=== PATIENT | female | born 1955 | race Caucasian/White ===

== ENCOUNTER 2023-10-27 00:10 | Inpatient (IN) | payer MEDICARE, OTHER ==
[~2023-10-27] VITALS: Ht 172.7 cm; Wt 93.4 kg
[2023-10-27 01:23] LABS: BASOPHILS # (AUTO) 0.1 K/UL (0.0-0.2); BASOPHILS % (AUTO) 0.4 % (0.0-2.0); EOSINOPHILS # (AUTO) 0.4 K/uL (0.0-0.7); EOSINOPHILS % (AUTO) 3.2 % (0.0-7.0); HEMATOCRIT 33.9 % (31.2-41.9); HEMOGLOBIN 11.2 g/dL (10.9-14.3); LYMPHOCYTES # (AUTO) 4.2 K/uL (0.8-4.8); LYMPHOCYTES % (AUTO) 35.1 % (20.5-51.5); MEAN CORPUSCULAR HEMOGLOBIN 29.6 uug (24.7-32.8); MEAN CORPUSCULAR HGB CONC 33 g/dL (32.3-35.6); MEAN CORPUSCULAR VOLUME 89.3 fL (75.5-95.3); MONOCYTES # (AUTO) 0.9 K/uL (0.1-1.30); NEUTROPHILS # (AUTO) 6.6 K/uL (1.8-8.9); NEUTROPHILS % (AUTO) 54.3 % (38.5-71.5); PLATELET COUNT (AUTO) 182 K/uL (179-408); RED CELL DISTRIBUTION WIDTH 13.6 % (12.3-17.7); WHITE BLOOD COUNT (AUTO) 12.1 K/uL (3.8-11.8)
[2023-10-27 01:40] LABS: DIFFERENTIAL COMMENT 1
[2023-10-27 01:53] LABS: ALBUMIN 3.1 g/dL (3.4-5.0); BILIRUBIN,TOTAL 0.4 mg/dL (0.2-1.0); CREATININE 1.1 mg/dL (0.6-1.3); MAGNESIUM 2.2 mg/dL (1.8-2.4); POTASSIUM 4.2 mmol/L (3.5-5.1); TOTAL PROTEIN, SERUM 6.6 g/dL (6.4-8.2)
[2023-10-27 01:58] LABS: THYROID STIMULATING HORMONE 3.122 mIU/mL (0.358-3.740)
[2023-10-27 02:48] LABS: *BILIRUBIN,URIN NEGATIVE (NEGATIVE); *BLOOD, URINE 2+ (NEGATIVE); *COLOR,URINE YELLOW (YELLOW); *KETONES,URINE NEGATIVE (NEGATIVE); *UROBILINOGEN,URINE 0.2 E.U./dl (NORMAL); LEUKOCYTE ESTERASE ,URINE 3+ (NEGATIVE); NITRITE, URINE NEGATIVE (NEGATIVE); PH,URINE 7.5 (5.0-8.0); UGLUCOSE NEGATIVE (NEGATIVE)
[2023-10-27 03:04] LABS: *CLARITY,URINE CLOUDY (CLEAR); *PROTEIN,URINE 3+ (NEGATIVE)
[2023-10-27] MEDS ORDERED: CEFTRIAXONE 1 G VIAL IM ONE (03:15)
[2023-10-27] MEDS ORDERED: CEFTRIAXONE 1 G VIAL ONE (03:16)
[2023-10-27 03:52] LABS: RBC,URINE 20-50 /HPF (0-3)
[2023-10-27 03:53] LABS: BACTERIA,URINE MANY /HPF (NONE SEEN); SQUAMOUS EPITHELIAL CELL,UR FEW /HPF (NONE SEEN); TRIPLE PHOSPHATE CRYSTAL,UR MANY /HPF (NONE SEEN); WBC,URINE TNTC /HPF (0-3)
[2023-10-27] MEDS ORDERED: CEPH500C2 PO (05:28)
[2023-10-27] MEDS ORDERED: REMEDY ESSENTIAL ZINC PASTE 113 GM TP PRN (09:15)
[2023-10-27] MEDS ORDERED: MORPHINE SULFATE 2 MG/1 ML DISP.SYRIN IV PRN (09:15)
[2023-10-27] MEDS ORDERED: ACETAMINOPHEN 325 MG TABLET PO PRN (09:15)
[2023-10-27] MEDS ORDERED: ONDANSETRON 4 MG/2 ML VIAL IV PRN (09:15)
[2023-10-27] MEDS ORDERED: CEFTRIAXONE 1 G in IV DEXTROSE 5% 50 ML IV SCH (09:15)
[2023-10-27] MEDS ORDERED: HYDROCODONE/APAP 5-325MG TABLET PO PRN (09:15)
[2023-10-27] MEDS ORDERED: MAGNESIUM HYDROXIDE 30 ML LIQUID UDC PO PRN (09:15)
[2023-10-27] MEDS: ENOXAPARIN SODIUM 40 MG/0.4 ML DISP.SYRIN SQ SCH (10:05)
[2023-10-27] MEDS ORDERED: CEFTRIAXONE /D5W 50ML IVPB **ER PYXIS IV ONE (10:10)
[2023-10-27 22:20] VITALS: BP 145/64; TEMP 98; O2SAT 97
[2023-10-27] MEDS: IV D5 1/2 NS 1000 ML 1,000 ML IV PRN (22:25)
[2023-10-28] VITALS: BP 126/62; TEMP 97.9; O2SAT 96
[2023-10-28 04:00] VITALS: BP 130/58; TEMP 97.4; O2SAT 96
[2023-10-28 06:00] LABS: BASOPHILS % (AUTO) 0.5 % (0.0-2.0); EOSINOPHILS # (AUTO) 0.3 K/uL (0.0-0.7); EOSINOPHILS % (AUTO) 3.6 % (0.0-7.0); HEMATOCRIT 34.2 % (31.2-41.9); HEMOGLOBIN 11.5 g/dL (10.9-14.3); LYMPHOCYTES % (AUTO) 35.8 % (20.5-51.5); MEAN CORPUSCULAR HEMOGLOBIN 29.8 uug (24.7-32.8); MEAN CORPUSCULAR HGB CONC 34 g/dL (32.3-35.6); MEAN CORPUSCULAR VOLUME 88.5 fL (75.5-95.3); MONOCYTES # (AUTO) 0.5 K/uL (0.1-1.30); MONOCYTES % (AUTO) 6.6 % (0.0-11.0); NEUTROPHILS # (AUTO) 4.4 K/uL (1.8-8.9); NEUTROPHILS % (AUTO) 53.5 % (38.5-71.5); PLATELET COUNT (AUTO) 155 K/uL (179-408); RED BLOOD CELL COUNT(AUTO) 3.86 MIL/uL (3.63-4.92); RED CELL DISTRIBUTION WIDTH 13.2 % (12.3-17.7); WHITE BLOOD COUNT (AUTO) 8.3 K/uL (3.8-11.8)
[2023-10-28 06:09] LABS: DIFFERENTIAL COMMENT 1
[2023-10-28 06:21] LABS: CALCIUM 8.7 mg/dL (8.5-10.1); MAGNESIUM 1.9 mg/dL (1.8-2.4); PHOSPHOROUS 3.9 mg/dL (2.5-4.9); POTASSIUM 3.7 mmol/L (3.5-5.1)
[2023-10-28 06:26] LABS: THYROID STIMULATING HORMONE 2.222 mIU/mL (0.358-3.740)
[2023-10-28 08:00] VITALS: BP 103/53; TEMP 97.4; O2SAT 96
[2023-10-28] MEDS: CEFTRIAXONE 1 G in IV DEXTROSE 5% 50 ML IV SCH (09:10)
[2023-10-28] MEDS: ENOXAPARIN SODIUM 40 MG/0.4 ML DISP.SYRIN SQ SCH (09:11)
[2023-10-28 14:45] VITALS: BP 122/53; TEMP 97.8; O2SAT 96
[2023-10-28] MEDS: IV D5 1/2 NS 1000 ML 1,000 ML IV PRN (17:23)
[2023-10-28 20:00] VITALS: BP 119/61; TEMP 98; O2SAT 97
[2023-10-29] VITALS (7 sets, daily range): BP systolic 93–115; BP diastolic 40–61; TEMP 97.7–98.4; O2SAT 91–99
[2023-10-29 06:57] LABS: BASOPHILS % (AUTO) 0.6 % (0.0-2.0); EOSINOPHILS # (AUTO) 0.3 K/uL (0.0-0.7); EOSINOPHILS % (AUTO) 4.5 % (0.0-7.0); HEMATOCRIT 32.9 % (31.2-41.9); HEMOGLOBIN 11.1 g/dL (10.9-14.3); LYMPHOCYTES # (AUTO) 2.8 K/uL (0.8-4.8); LYMPHOCYTES % (AUTO) 37.5 % (20.5-51.5); MEAN CORPUSCULAR HEMOGLOBIN 29.8 uug (24.7-32.8); MEAN CORPUSCULAR HGB CONC 34 g/dL (32.3-35.6); MEAN CORPUSCULAR VOLUME 88.5 fL (75.5-95.3); MONOCYTES # (AUTO) 0.5 K/uL (0.1-1.30); MONOCYTES % (AUTO) 6.2 % (0.0-11.0); NEUTROPHILS # (AUTO) 3.8 K/uL (1.8-8.9); NEUTROPHILS % (AUTO) 51.2 % (38.5-71.5); PLATELET COUNT (AUTO) 155 K/uL (179-408); RED BLOOD CELL COUNT(AUTO) 3.71 MIL/uL (3.63-4.92); RED CELL DISTRIBUTION WIDTH 13.1 % (12.3-17.7); WHITE BLOOD COUNT (AUTO) 7.3 K/uL (3.8-11.8)
[2023-10-29 07:10] LABS: DIFFERENTIAL COMMENT 1
[2023-10-29 07:41] LABS: CALCIUM 8.9 mg/dL (8.5-10.1); CREATININE 0.9 mg/dL (0.6-1.3); POTASSIUM 3.7 mmol/L (3.5-5.1)
[2023-10-29] MEDS: CEFTRIAXONE 1 G in IV DEXTROSE 5% 50 ML IV SCH (08:28)
[2023-10-29] MEDS: ENOXAPARIN SODIUM 40 MG/0.4 ML DISP.SYRIN SQ SCH (08:45)
[2023-10-29] MEDS ORDERED: ACET325T53 PO (12:16)
[2023-10-29] MEDS ORDERED: ACET-2030 PO (12:17)
[2023-10-29] MEDS ORDERED: BACL10TA PO (12:18)
[2023-10-29] MEDS ORDERED: DILT-2 PO (12:20)
[2023-10-29] MEDS ORDERED: BISA10SU61 RC (12:21)
[2023-10-29] MEDS ORDERED: ERGO500040 PO (12:23)
[2023-10-29] MEDS ORDERED: FERR-56 PO (12:24)
[2023-10-29] MEDS ORDERED: OMEG-49 PO (12:25)
[2023-10-29] MEDS ORDERED: NA P133E RC (12:27)
[2023-10-29] MEDS ORDERED: LOSA100T31 PO (13:13)
[2023-10-29] MEDS ORDERED: IBUP-1490 PO (13:13)
[2023-10-29] MEDS ORDERED: METF-440 PO (13:16)
[2023-10-29] MEDS ORDERED: METO-358 PO (13:18)
[2023-10-29] MEDS ORDERED: MAGN400O6 PO (13:19)
[2023-10-29] MEDS ORDERED: MULT-213 PO (13:20)
[2023-10-29] MEDS ORDERED: RIVA20TA PO (13:21)
[2023-10-29] MEDS ORDERED: ROSU40TA PO (13:22)
[2023-10-29] MEDS ORDERED: SERT25TA PO (13:24)
[2023-10-29] MEDS: IV D5 1/2 NS 1000 ML 1,000 ML IV PRN (13:31)
[2023-10-29] MEDS ORDERED: NIAC-49 PO (13:32)
[2023-10-29] MEDS ORDERED: GLUC1KIT IM (13:35)
[2023-10-29] MEDS ORDERED: DEXT38GE12 PO (13:36)
[2023-10-29] MEDS ORDERED: HOME MED MISCELLANEOUS XX SCH ×2 (15:15)
[2023-10-29] MEDS ORDERED: BISACODYL 10 MG SUPP.RECT RC PRN (15:15)
[2023-10-29] MEDS ORDERED: FLEET ENEMA 133 ML BOTTLE RC PRN (15:15)
[2023-10-29] MEDS ORDERED: BACLOFEN 10 MG TABLET PO PRN (15:15)
[2023-10-29] MEDS ORDERED: ERGOCALCIFEROL 50,000 UNIT CAPSULE PO SCH (15:15)
[2023-10-29] MEDS ORDERED: MAGNESIUM HYDROXIDE 30 ML LIQUID UDC PO PRN ×2 (15:15→16:00)
[2023-10-29] MEDS ORDERED: RIVAROXABAN 10 MG TABLET PO SCH (18:00)
[2023-10-29] MEDS: ATORVASTATIN 40 MG TABLET PO SCH (20:25)
[2023-10-30 00:27] VITALS: BP 126/67; TEMP 98.6; O2SAT 95
[2023-10-30 04:28] VITALS: BP 116/84; TEMP 97.6; O2SAT 95
[2023-10-30 06:20] LABS: BASOPHILS % (AUTO) 0.4 % (0.0-2.0); EOSINOPHILS # (AUTO) 0.4 K/uL (0.0-0.7); EOSINOPHILS % (AUTO) 4.7 % (0.0-7.0); HEMATOCRIT 33.3 % (31.2-41.9); HEMOGLOBIN 11.2 g/dL (10.9-14.3); LYMPHOCYTES # (AUTO) 2.9 K/uL (0.8-4.8); LYMPHOCYTES % (AUTO) 38.1 % (20.5-51.5); MEAN CORPUSCULAR HEMOGLOBIN 29.8 uug (24.7-32.8); MEAN CORPUSCULAR HGB CONC 34 g/dL (32.3-35.6); MEAN CORPUSCULAR VOLUME 88.6 fL (75.5-95.3); MONOCYTES # (AUTO) 0.5 K/uL (0.1-1.30); MONOCYTES % (AUTO) 6.4 % (0.0-11.0); NEUTROPHILS # (AUTO) 3.8 K/uL (1.8-8.9); NEUTROPHILS % (AUTO) 50.4 % (38.5-71.5); PLATELET COUNT (AUTO) 155 K/uL (179-408); RED BLOOD CELL COUNT(AUTO) 3.76 MIL/uL (3.63-4.92); RED CELL DISTRIBUTION WIDTH 13.4 % (12.3-17.7); WHITE BLOOD COUNT (AUTO) 7.6 K/uL (3.8-11.8)
[2023-10-30 06:41] LABS: DIFFERENTIAL COMMENT 1
[2023-10-30 06:43] LABS: CALCIUM 8.8 mg/dL (8.5-10.1); CREATININE 0.9 mg/dL (0.6-1.3); POTASSIUM 3.6 mmol/L (3.5-5.1)
[2023-10-30] MEDS ORDERED: ACETAMINOPHEN 325 MG TABLET PO ONE (09:30)
[2023-10-30] MEDS ORDERED: GABAPENTIN 100 MG CAPSULE PO ONE (09:30)
[2023-10-30] MEDS ORDERED: ACETAMINOPHEN ES 500 MG TABLET PO ONE (09:45)
[2023-10-30] MEDS: CEFTRIAXONE 1 G in IV DEXTROSE 5% 50 ML IV SCH (09:52)
[2023-10-30] MEDS ORDERED: VANCOMYCIN 1000 MG VIAL ONE (09:52)
[2023-10-30] MEDS: IV D5 1/2 NS 1000 ML 1,000 ML IV PRN (09:53)
[2023-10-30] MEDS: DILTIAZEM HCL CD 120 MG CAP.SR.24H PO SCH (09:54)
[2023-10-30] MEDS: MULTIVITAMINS,THERAPEUTIC TABLET PO SCH (09:55)
[2023-10-30] MEDS: LOSARTAN POTASSIUM 50 MG TABLET PO SCH (09:55)
[2023-10-30] MEDS: FERROUS SULFATE 325 MG TABEC PO SCH (09:55)
[2023-10-30] MEDS: METOPROLOL SUCCINATE XL 50 MG TAB.SR.24H PO SCH (09:55)
[2023-10-30] MEDS: SERTRALINE HCL 50 MG TABLET PO SCH (09:56)
[2023-10-30] MEDS ORDERED: MIDAZOLAM HCL 2 MG/2 ML VIAL ONE (11:28)
[2023-10-30] MEDS ORDERED: ROCURONIUM BROMIDE 50 MG/5 ML VIAL ONE ×2 (11:28→11:29)
[2023-10-30] MEDS ORDERED: FENTANYL CITRATE 100 MCG/2 ML AMPUL ONE (11:35)
[2023-10-30] MEDS ORDERED: MORPHINE SULFATE 4 MG/1 ML DISP.SYRIN IV PRN (13:45)
[2023-10-30] MEDS ORDERED: HYDROCODONE/APAP 10-325 MG TABLET PO PRN (13:45)
[2023-10-30 15:04] VITALS: BP 123/66; TEMP 97.4; O2SAT 97
[2023-10-30] MEDS: IV D5W-0.45% NS +20 KCL 1,000 ML IV PRN (15:22)
[2023-10-30] MEDS: ATORVASTATIN 40 MG TABLET PO SCH (20:08)
[2023-10-30 20:42] VITALS: BP 124/61; TEMP 97.9; O2SAT 95
[2023-10-31 00:20] VITALS: BP 106/47; TEMP 97.9; O2SAT 94
[2023-10-31 04:07] VITALS: BP 108/85; TEMP 97.3; O2SAT 95
[2023-10-31] MEDS: IV D5W-0.45% NS +20 KCL 1,000 ML IV PRN ×2 (04:09→22:20)
[2023-10-31 07:28] LABS: HEMATOCRIT 30.7 % (31.2-41.9); HEMOGLOBIN 10.1 g/dL (10.9-14.3); LYMPHOCYTES # (AUTO) 1.2 K/uL (0.8-4.8); LYMPHOCYTES % (AUTO) 8.6 % (20.5-51.5); MEAN CORPUSCULAR HEMOGLOBIN 29.3 uug (24.7-32.8); MEAN CORPUSCULAR HGB CONC 33 g/dL (32.3-35.6); MEAN CORPUSCULAR VOLUME 89.1 fL (75.5-95.3); MONOCYTES # (AUTO) 0.7 K/uL (0.1-1.30); MONOCYTES % (AUTO) 4.7 % (0.0-11.0); NEUTROPHILS # (AUTO) 12.5 K/uL (1.8-8.9); NEUTROPHILS % (AUTO) 86.7 % (38.5-71.5); PLATELET COUNT (AUTO) 204 K/uL (179-408); RED BLOOD CELL COUNT(AUTO) 3.44 MIL/uL (3.63-4.92); RED CELL DISTRIBUTION WIDTH 13.3 % (12.3-17.7); WHITE BLOOD COUNT (AUTO) 14.4 K/uL (3.8-11.8)
[2023-10-31 07:39] LABS: CALCIUM 8.9 mg/dL (8.5-10.1); POTASSIUM 4.3 mmol/L (3.5-5.1)
[2023-10-31 07:51] LABS: DIFFERENTIAL COMMENT 1
[2023-10-31 08:00] VITALS: BP 92/51; TEMP 98.2; O2SAT 99
[2023-10-31] MEDS: CEFTRIAXONE 1 G in IV DEXTROSE 5% 50 ML IV SCH (08:38)
[2023-10-31] MEDS: LOSARTAN POTASSIUM 50 MG TABLET PO SCH (08:39)
[2023-10-31] MEDS: DILTIAZEM HCL CD 120 MG CAP.SR.24H PO SCH (08:40)
[2023-10-31] MEDS: FERROUS SULFATE 325 MG TABEC PO SCH (08:40)
[2023-10-31] MEDS: METOPROLOL SUCCINATE XL 50 MG TAB.SR.24H PO SCH (08:41)
[2023-10-31] MEDS: SERTRALINE HCL 50 MG TABLET PO SCH (08:41)
[2023-10-31] MEDS: MULTIVITAMINS,THERAPEUTIC TABLET PO SCH (08:41)
[2023-10-31] MEDS: ENOXAPARIN SODIUM 40 MG/0.4 ML DISP.SYRIN SQ SCH (08:42)
[2023-10-31 11:06] VITALS: BP 106/65; TEMP 98.3; O2SAT 96
[2023-10-31 16:03] VITALS: BP 124/56; TEMP 97.6; O2SAT 98
[2023-10-31 20:11] VITALS: BP 106/57; TEMP 97.5; O2SAT 97
[2023-10-31] MEDS: ATORVASTATIN 40 MG TABLET PO SCH (20:52)
[2023-11-01] VITALS: BP 140/68; TEMP 97.5; O2SAT 96
[2023-11-01 05:32] VITALS: BP 114/59; TEMP 97.7; O2SAT 95
[2023-11-01 07:07] LABS: BASOPHILS % (AUTO) 0.2 % (0.0-2.0); EOSINOPHILS # (AUTO) 0.1 K/uL (0.0-0.7); EOSINOPHILS % (AUTO) 0.5 % (0.0-7.0); HEMATOCRIT 26.9 % (31.2-41.9); HEMOGLOBIN 9.1 g/dL (10.9-14.3); LYMPHOCYTES # (AUTO) 2.7 K/uL (0.8-4.8); LYMPHOCYTES % (AUTO) 27.5 % (20.5-51.5); MEAN CORPUSCULAR HEMOGLOBIN 30.3 uug (24.7-32.8); MEAN CORPUSCULAR HGB CONC 34 g/dL (32.3-35.6); MEAN CORPUSCULAR VOLUME 89.9 fL (75.5-95.3); MONOCYTES # (AUTO) 0.8 K/uL (0.1-1.30); MONOCYTES % (AUTO) 8.3 % (0.0-11.0); NEUTROPHILS # (AUTO) 6.2 K/uL (1.8-8.9); NEUTROPHILS % (AUTO) 63.5 % (38.5-71.5); PLATELET COUNT (AUTO) 138 K/uL (179-408); RED BLOOD CELL COUNT(AUTO) 2.99 MIL/uL (3.63-4.92); WHITE BLOOD COUNT (AUTO) 9.7 K/uL (3.8-11.8)
[2023-11-01 07:11] LABS: CALCIUM 8.6 mg/dL (8.5-10.1); CREATININE 0.7 mg/dL (0.6-1.3); MAGNESIUM 2.4 mg/dL (1.8-2.4); PHOSPHOROUS 2.9 mg/dL (2.5-4.9); POTASSIUM 3.9 mmol/L (3.5-5.1)
[2023-11-01 07:13] LABS: DIFFERENTIAL COMMENT 1
[2023-11-01 08:00] VITALS: BP 116/55; TEMP 97.4; O2SAT 100
[2023-11-01] MEDS: DILTIAZEM HCL CD 120 MG CAP.SR.24H PO SCH (08:34)
[2023-11-01] MEDS: MULTIVITAMINS,THERAPEUTIC TABLET PO SCH (08:34)
[2023-11-01] MEDS: METOPROLOL SUCCINATE XL 50 MG TAB.SR.24H PO SCH (08:34)
[2023-11-01] MEDS: SERTRALINE HCL 50 MG TABLET PO SCH (08:35)
[2023-11-01] MEDS: CEFTRIAXONE 1 G in IV DEXTROSE 5% 50 ML IV SCH (08:35)
[2023-11-01] MEDS: FERROUS SULFATE 325 MG TABEC PO SCH (08:35)
[2023-11-01] MEDS: ENOXAPARIN SODIUM 40 MG/0.4 ML DISP.SYRIN SQ SCH (08:36)
[2023-11-01 08:46] LABS: CALCIUM 8.5 mg/dL (8.5-10.1); CREATININE 0.7 mg/dL (0.6-1.3); POTASSIUM 4.1 mmol/L (3.5-5.1)
[2023-11-01 11:38] VITALS: BP 102/47; TEMP 98.2; O2SAT 100
[2023-11-01] MEDS ORDERED: NITR100C11 PO (13:08)
[2023-11-01] MEDS ORDERED: ENOX40DI SQ (13:08)
[2023-11-01] MEDS: IV D5W-0.45% NS +20 KCL 1,000 ML IV PRN (14:26)
[2023-11-01 16:12] VITALS: BP 112/55; TEMP 98.2; O2SAT 100
[2023-11-04] MEDS ORDERED: ERGOCALCIFEROL 50,000 UNIT CAPSULE PO SCH (17:00)
== END 2023-11-01 21:29 | DRG 493 ==
LOC: ER 00:30 → TELE3 21:46
PROVIDERS: ADMIT Nurse Practitioner Acute Care; ATTEND Nurse Practitioner Acute Care
PROC: 0PSG04Z Reposition Left Humeral Shaft with Internal Fixation Device, Open Approach (ICD-10-PCS; principal; 2023-10-30)
DX: S42.222A 2-part displaced fracture of surgical neck of left humerus, initial encounter for closed fracture (principal); D68.59 Other primary thrombophilia; E44.0 Moderate protein-calorie malnutrition; N39.0 Urinary tract infection, site not specified; Z68.31 Body mass index [BMI] 31.0-31.9, adult; W18.30XA Fall on same level, unspecified, initial encounter; Y92.129 Unspecified place in nursing home as the place of occurrence of the external cause; B96.20 Unspecified Escherichia coli [E. coli] as the cause of diseases classified elsewhere; R00.1 Bradycardia, unspecified; M06.9 Rheumatoid arthritis, unspecified; E88.09 Other disorders of plasma-protein metabolism, not elsewhere classified; E66.9 Obesity, unspecified; Z74.09 Other reduced mobility; Z20.822 Contact with and (suspected) exposure to COVID-19; R79.89 Other specified abnormal findings of blood chemistry; Z79.01 Long term (current) use of anticoagulants; Z79.899 Other long term (current) drug therapy; E11.9 Type 2 diabetes mellitus without complications; Z79.84 Long term (current) use of oral hypoglycemic drugs; R53.1 Weakness
CPT/HCPCS: 36415; 71045; 73020; 73060; 83735; 84100; 84443; 84484; 85025; 85730; 93307; A4606; A4649; A4663; A9150; C1713; C1758; G0378; J0696; J1650; J2250; J3010; J3370; J3490

== ENCOUNTER 2025-10-13 19:15 | Inpatient (IN) | payer MEDICARE, OTHER ==
[~2025-10-13] VITALS: Ht 172.7 cm; Wt 97.5 kg
[~2025-10-13 19:15] MED LIST: ACET-3752 PO; BACL10TA PO; BISA10SU61 RC; DEXT38GE12 PO; DILT-2 PO; ENOX40DI SQ; ERGO125010 PO; FERR-56 PO; GLUC1VIA21 IM; MAGN400O6 PO; METF-440 PO; METO-358 PO; MULT-213 PO; NA P133E RC; NIAC-49 PO; NITR100C11 PO; OMEG-49 PO; ROSU40TA PO; SERT25TA PO
[2025-10-13] MEDS: IV NORMAL SALINE 1000 ML BAG IV ONE (19:30)
[2025-10-13] MEDS: PIPERACILLIN SODIUM/TAZOBACTAM 3.375 G in IV DEXTROSE 5% 50 ML IV ONE (19:30)
[2025-10-13] MEDS ORDERED: LIDO30AD10 TP (19:41)
[2025-10-13] MEDS ORDERED: BISA10SU61 RC (19:41)
[2025-10-13] MEDS ORDERED: ROSU10TA2 PO (19:41)
[2025-10-13] MEDS ORDERED: CALC600T35 PO (19:41)
[2025-10-13] MEDS ORDERED: NIAC500T25 PO (19:41)
[2025-10-13] MEDS ORDERED: FENO48TA PO (19:41)
[2025-10-13] MEDS ORDERED: POLY17PO4 PO (19:41)
[2025-10-13] MEDS ORDERED: IPRA0.2S48 NEB (19:41)
[2025-10-13] MEDS ORDERED: CHOL100045 PO (19:41)
[2025-10-13 19:55] LABS: CREATININE 4.3 mg/dL (0.6-1.3); SODIUM SERUM 138 mmol/L (136-145); UREA NITROGEN, BLOOD 58 mg/dL (7-18)
[2025-10-13 19:56] LABS: PLATELET COUNT (AUTO) 236 K/uL (179-408); RED BLOOD CELL COUNT(AUTO) 3.39 MIL/uL (3.63-4.92); RED CELL DISTRIBUTION WIDTH 18.0 % (12.3-17.7)
[2025-10-13 19:58] LABS: WHITE BLOOD COUNT (AUTO) 41.8 K/uL (3.8-11.8)
[2025-10-13 20:01] LABS: ASPARTATE AMINOTRANSFERASE 227 U/L (15-37); TOTAL PROTEIN, SERUM 7.2 g/dL (6.4-8.2)
[2025-10-13] MEDS ORDERED: PIPERACILLIN/TAZOBACTAM/D5W 50 ML IV ONE (20:04)
[2025-10-13 20:05] LABS: LACTIC ACID 2.5 mmol/L (0.4-2.0)
[2025-10-13 20:36] LABS: BAND % (MANUAL) 19 % (0-10); EOSINOPHILS % (MANUAL) 2 % (0-8); LYMPHOCYTES % (MANUAL) 4 % (20-40); MONOCYTES % (MANUAL) 2 % (2-10); NEUTROPHILS % (MANUAL) 73 % (42-75); PLATELET ESTIMATE ADEQUATE
[2025-10-13] MEDS ORDERED: IV NS 1000 ML 2,000 ML IV ONE (20:45)
[2025-10-13] MEDS: IV NORMAL SALINE 500 ML IV ONE (20:51)
[2025-10-13] MEDS ORDERED: VANCOMYCIN 1000 MG VIAL ONE (21:00)
[2025-10-13 21:07] LABS: *BILIRUBIN,URIN 1+ (NEGATIVE); *BLOOD, URINE 2+ (NEGATIVE); *COLOR,URINE YELLOW (YELLOW); *KETONES,URINE TRACE (NEGATIVE); *PROTEIN,URINE 2+ (NEGATIVE); *UROBILINOGEN,URINE 1.0 E.U./dl (NORMAL); LEUKOCYTE ESTERASE ,URINE 3+ (NEGATIVE); NITRITE, URINE NEGATIVE (NEGATIVE); UGLUCOSE NEGATIVE (NEGATIVE)
[2025-10-13 21:13] LABS: *CLARITY,URINE CLOUDY (CLEAR)
[2025-10-13 21:19] LABS: SQUAMOUS EPITHELIAL CELL,UR MANY /HPF (NONE SEEN); URINE AMORPHOUS URATE MANY /HPF
[2025-10-13] MEDS ORDERED: ONDANSETRON 4 MG/2 ML VIAL IV PRN (22:30)
[2025-10-13] MEDS ORDERED: MAGNESIUM HYDROXIDE 30 ML LIQUID UDC PO PRN (22:30)
[2025-10-13] MEDS ORDERED: ACETAMINOPHEN 325 MG TABLET-SA PATIENTS-PAIN ONLY PO PRN (22:45)
[2025-10-13] MEDS ORDERED: MIRALAX 17 GM POWD.PACK PO PRN (22:45)
[2025-10-13] MEDS ORDERED: FLEET ENEMA 133 ML BOTTLE RC PRN (22:45)
[2025-10-13] MEDS ORDERED: BISACODYL 10 MG SUPP.RECT RC PRN (22:45)
[2025-10-13] MEDS ORDERED: INSULIN REGULAR, HUMAN 300 UNITS/3 ML VIAL SQ PRN (22:45)
[2025-10-13] MEDS ORDERED: DEXTROSE 50% 50 ML DISP.SYRIN IV PRN (22:45)
[2025-10-13 23:00] VITALS: BP 102/52
[2025-10-14] VITALS (12 sets, daily range): BP systolic 95–103; BP diastolic 45–62; TEMP 97.2–97.9; O2SAT 97–100
[2025-10-14] MEDS: IV NS 1000 ML 1,000 ML IV PRN (00:39)
[2025-10-14] MEDS: PANTOPRAZOLE SODIUM 40 MG TABLET.DR PO SCH (06:08)
[2025-10-14] MEDS: BLOOD SUGAR DIAGNOSTIC 1 EACH STRIP VI SCH (06:44)
[2025-10-14] MEDS: IPRATROPIUM BROMIDE 0.5 MG/2.5 ML NEBU NEB SCH (07:30)
[2025-10-14] MEDS ORDERED: ENOXAPARIN SODIUM 30 MG/0.3 ML DISP.SYRIN SQ SCH ×2 (09:00)
[2025-10-14] MEDS: DILTIAZEM HCL CD 120 MG CAP.SR.24H PO SCH (09:00)
[2025-10-14] MEDS ORDERED: NIACIN 500 MG TABLET.SA PO SCH ×2 (09:00)
[2025-10-14] MEDS ORDERED: FENOFIBRATE NANOCRYSTALLIZED 48 MG TABLET PO SCH (09:00)
[2025-10-14] MEDS: METOPROLOL SUCCINATE XL 50 MG TAB.SR.24H PO SCH (09:00)
[2025-10-14 09:07] LABS: ASPARTATE AMINOTRANSFERASE 199.0 U/L (15-37); CREATININE 4.0 mg/dL (0.6-1.3); SODIUM SERUM 137.0 mmol/L (136-145); TOTAL PROTEIN, SERUM 6.9 g/dL (6.4-8.2); UREA NITROGEN, BLOOD 64.0 mg/dL (7-18)
[2025-10-14 09:10] LABS: PLATELET COUNT (AUTO) 206 K/uL (179-408); RED BLOOD CELL COUNT(AUTO) 3.30 MIL/uL (3.63-4.92); RED CELL DISTRIBUTION WIDTH 17.7 % (12.3-17.7)
[2025-10-14 09:16] LABS: WHITE BLOOD COUNT (AUTO) 31.3 K/uL (3.8-11.8)
[2025-10-14] MEDS: OMEGA-3 FATTY ACIDS/FISH OIL CAPSULE PO SCH (09:36)
[2025-10-14] MEDS: PIPERACILLIN SODIUM/TAZOBACTAM 3.375 G in IV DEXTROSE 5% 100 ML IV SCH (09:36)
[2025-10-14] MEDS: CALCIUM CARBONATE 600 MG TABLET PO SCH (09:37)
[2025-10-14] MEDS: SERTRALINE HCL 50 MG TABLET PO SCH (09:37)
[2025-10-14] MEDS: CHOLECALCIFEROL 1,000 UNIT TABLET PO SCH (09:38)
[2025-10-14] MEDS ORDERED: PIPERACILLIN SODIUM/TAZOBACTAM 3.375 G in IV DEXTROSE 5% 50 ML IV SCH (12:00)
[2025-10-14] MEDS: HEPARIN SODIUM,PORCINE 5,000 UNITS/ML VIAL SQ SCH (12:04)
[2025-10-14] MEDS: INSULIN REGULAR, HUMAN 1000 UNIT/10 ML VIAL SQ PRN (12:06)
[2025-10-14 15:00] LABS: BAND % (MANUAL) 34 % (0-10); EOSINOPHILS % (MANUAL) 2 % (0-8); LYMPHOCYTES % (MANUAL) 5 % (20-40); MONOCYTES % (MANUAL) 3 % (2-10); NEUTROPHILS % (MANUAL) 54 % (42-75)
[2025-10-14 15:01] LABS: METAMYELOCYTES % 2 % (0-1); PLATELET ESTIMATE DECREASED
[2025-10-14] MEDS ORDERED: IPRA3AMP23 IH (15:14)
[2025-10-14] MEDS: ALBUTEROL SULFATE 2.5 MG/3 ML NEBU NEB SCH (20:49)
[2025-10-14] MEDS ORDERED: ATORVASTATIN 20 MG TABLET PO SCH (21:00)
[2025-10-15] VITALS (10 sets, daily range): BP systolic 90–108; BP diastolic 41–63; TEMP 97.4–98.3; O2SAT 96–98
[2025-10-15 06:42] LABS: PLATELET COUNT (AUTO) 179 K/uL (179-408); RED BLOOD CELL COUNT(AUTO) 3.13 MIL/uL (3.63-4.92); RED CELL DISTRIBUTION WIDTH 17.7 % (12.3-17.7); WHITE BLOOD COUNT (AUTO) 20.0 K/uL (3.8-11.8)
[2025-10-15 07:10] LABS: ASPARTATE AMINOTRANSFERASE 75 U/L (15-37); CREATINE KINASE, TOTAL < 7 U/L (26-192); CREATININE 3.4 mg/dL (0.6-1.3); SODIUM SERUM 140 mmol/L (136-145); TOTAL PROTEIN, SERUM 6.3 g/dL (6.4-8.2); UREA NITROGEN, BLOOD 64 mg/dL (7-18)
[2025-10-15 07:50] LABS: ERYTHROCYTE SEDIMENTATION RATE 126 MM/HR (0-20)
[2025-10-15] MEDS ORDERED: FENOFIBRATE NANOCRYSTALLIZED 48 MG TABLET PO SCH (09:00)
[2025-10-15] MEDS: SERTRALINE HCL 50 MG TABLET PO SCH (09:07)
[2025-10-15] MEDS: REMEDY ESSENTIAL ZINC PASTE 113 GM TP PRN (09:13)
[2025-10-15] MEDS: ACETAMINOPHEN 325 MG TABLET PO PRN (20:33)
[2025-10-16] VITALS (8 sets, daily range): BP systolic 99–112; BP diastolic 40–47; TEMP 97.5–99.6; O2SAT 95–100
[2025-10-16 06:11] LABS: HEPATITIS B SURFACE AB, QUAL Non Reactive (.); HEPATITIS B SURFACE AG Negative (Negative); HEPATITIS C VIRUS ANTIBODY Non Reactive (Non Reactive)
[2025-10-16 06:17] LABS: PLATELET COUNT (AUTO) 133 K/uL (179-408); RED BLOOD CELL COUNT(AUTO) 3.22 MIL/uL (3.63-4.92); RED CELL DISTRIBUTION WIDTH 18.5 % (12.3-17.7); WHITE BLOOD COUNT (AUTO) 14.8 K/uL (3.8-11.8)
[2025-10-16 06:26] LABS: CREATININE 3.1 mg/dL (0.6-1.3); SODIUM SERUM 139.0 mmol/L (136-145); UREA NITROGEN, BLOOD 57.0 mg/dL (7-18)
[2025-10-16 08:09] LABS: COMPLEMENT, C3 SERUM 153 mg/dL (82-167); COMPLEMENT, C4 SERUM 28 mg/dL (12-38)
[2025-10-16] MEDS: ENSURE ENLIVE (VAN) 240 ML LIQUID PO SCH (09:45)
[2025-10-16] MEDS: VANCOMYCIN IV 1,000 MG in IV DEXTROSE 5% 250 ML IV ONE ×2 (10:22→13:41)
[2025-10-16 12:08] LABS: PTH, INTACT 55 pg/mL (15-65)
[2025-10-16] MEDS: MEROPENEM 500 MG in IV NORMAL SALINE 50 ML IV SCH (21:44)
[2025-10-16] MEDS: ACIDOPHILUS/BULGARICUS CHEW TAB PO SCH (21:46)
[2025-10-16] MEDS ORDERED: MEROPENEM 500 MG in IV NORMAL SALINE 50 ML IV SCH (22:00)
[2025-10-17] VITALS (10 sets, daily range): BP systolic 95–111; BP diastolic 38–53; TEMP 97.4–97.8; O2SAT 98–100
[2025-10-17 07:04] LABS: PLATELET COUNT (AUTO) 101 K/uL (179-408); RED BLOOD CELL COUNT(AUTO) 3.04 MIL/uL (3.63-4.92); RED CELL DISTRIBUTION WIDTH 18.4 % (12.3-17.7); WHITE BLOOD COUNT (AUTO) 19.0 K/uL (3.8-11.8)
[2025-10-17 07:26] LABS: CREATININE 3.0 mg/dL (0.6-1.3); SODIUM SERUM 142.0 mmol/L (136-145); UREA NITROGEN, BLOOD 53.0 mg/dL (7-18)
[2025-10-17 07:49] LABS: ASPARTATE AMINOTRANSFERASE 22.0 U/L (15-37); TOTAL PROTEIN, SERUM 6.3 g/dL (6.4-8.2)
[2025-10-17] MEDS: PROTEIN SUPPLEMENT (PROSTAT) 30 ML LIQUID PO SCH (08:42)
[2025-10-17 14:09] LABS: *ANTI-SCLERODERMA-70 AB <0.2 AI (0.0-0.9); *RNP ANTIBODIES <0.2 AI (0.0-0.9); *SJOGREN'S ANTI-SS-A <0.2 AI (0.0-0.9); *SJOGREN'S ANTI-SS-B <0.2 AI (0.0-0.9); *SMITH ANTIBODIES <0.2 AI (0.0-0.9); ANTI-DNA(DS) AB, QN 2 IU/mL (0-9); ANTI-NUCLEAR AB DIRECT Negative (Negative)
[2025-10-18 05:10] VITALS: BP 118/53; TEMP 98.6; O2SAT 97
[2025-10-18 05:48] LABS: PLATELET COUNT (AUTO) 97 K/uL (179-408); RED BLOOD CELL COUNT(AUTO) 2.92 MIL/uL (3.63-4.92); RED CELL DISTRIBUTION WIDTH 18.2 % (12.3-17.7); WHITE BLOOD COUNT (AUTO) 14.4 K/uL (3.8-11.8)
[2025-10-18 06:02] LABS: CREATININE 2.4 mg/dL (0.6-1.3); SODIUM SERUM 137.0 mmol/L (136-145); UREA NITROGEN, BLOOD 41.0 mg/dL (7-18)
[2025-10-18 06:34] LABS: LYMPHOCYTES % (MANUAL) 8 % (20-40); MONOCYTES % (MANUAL) 5 % (2-10); PLATELET ESTIMATE DECREASED
[2025-10-18 06:37] LABS: BAND % (MANUAL) 2 % (0-10); NEUTROPHILS % (MANUAL) 85 % (42-75)
[2025-10-18 11:05] VITALS: BP 104/47; TEMP 98.9; O2SAT 96
[2025-10-18] MEDS ORDERED: Lactose-Free Food PO (13:49)
[2025-10-18] MEDS ORDERED: MENT113O TP (13:49)
[2025-10-18] MEDS ORDERED: PROT30LI PO (13:49)
[2025-10-18] MEDS ORDERED: MERO500P IV (13:49)
[2025-10-18] MEDS ORDERED: Acidophilus/Bulgaricus PO (13:49)
[2025-10-18 14:58] VITALS: O2SAT 97
[2025-10-18 15:32] VITALS: BP 122/69; TEMP 97.8; O2SAT 96
[2025-10-20 09:07] LABS: A/G RATIO 0.5 (0.7-1.7); BETA GLOBULIN 1.0 g/dL (0.7-1.3); GLOBULIN, TOTAL 4.1 g/dL (2.2-3.9); M-SPIKE Not Observed g/dL (Not Observed); PROTEIN, TOTAL 6.0 g/dL (6.0-8.5)
== END 2025-10-18 16:22 | DRG 871 ==
LOC: ER 19:28 → TELE3 22:57 → MEDSURG3 10-15 10:10
PROVIDERS: ADMIT Student in an Organized Health Care Education/Training Program; ATTEND Internal Medicine
DX: A41.51 Sepsis due to Escherichia coli [E. coli] (principal); G92.8 Other toxic encephalopathy; N17.0 Acute kidney failure with tubular necrosis; I50.31 Acute diastolic (congestive) heart failure; I13.0 Hypertensive heart and chronic kidney disease with heart failure and stage 1 through stage 4 chronic kidney disease, or unspecified chronic kidney disease; N13.6 Pyonephrosis; R65.20 Severe sepsis without septic shock; E66.9 Obesity, unspecified; D63.8 Anemia in other chronic diseases classified elsewhere; M06.9 Rheumatoid arthritis, unspecified; E11.22 Type 2 diabetes mellitus with diabetic chronic kidney disease; N18.9 Chronic kidney disease, unspecified; Z16.12 Extended spectrum beta lactamase (ESBL) resistance; D68.59 Other primary thrombophilia; M19.071 Primary osteoarthritis, right ankle and foot; Z68.32 Body mass index [BMI] 32.0-32.9, adult; E78.5 Hyperlipidemia, unspecified; Z74.09 Other reduced mobility; L24.A0 Irritant contact dermatitis due to friction or contact with body fluids, unspecified; G31.84 Mild cognitive impairment of uncertain or unknown etiology; Z79.84 Long term (current) use of oral hypoglycemic drugs; Z84.19 Family history of other disorders of kidney and ureter
CPT/HCPCS: 36415; 70030-TC; 71045; 76770; 83605; 83735; 83970; 84100; 84155; 84165; 84484; 85025; 85651; 85730; 86038; 86160; 86706; 86803; 87040; 87077; 87086; 87340; 94640; 94664; 94760; 97535-GO-CO; A4606; A4663; A6213; G0378; J1644; J1815; J2185; J2543; J3373; J3590; J7040; J7050; J7060